=== PATIENT | male | born 1935 ===

== ENCOUNTER → 2016-06-23 | Outpatient (CLI) | payer MEDICARE | END | disposition disaster alternative care site (69) | LOC: GRAD 09:55 | DX: C64.9 Malignant neoplasm of unspecified kidney, except renal pelvis (principal); Q61.02 Congenital multiple renal cysts ==

== ENCOUNTER → 2016-10-27 | Outpatient (CLI) | payer MEDICARE | END | disposition disaster alternative care site (69) | LOC: LGSMG 11:40 | DX: N28.9 Disorder of kidney and ureter, unspecified (principal) ==